=== PATIENT | female | born 1970 | race Caucasian/White ===

== ENCOUNTER 2016-10-02 11:35 | Emergency (ER) | payer OTHER ==
[~2016-10-02] VITALS: Ht 177.8 cm; Wt 99.0 kg
[~2016-10-02 11:35] MED LIST: AMBIEN10 MG PO; BUSPAR5 MG PO; IBUPROFEN800 MG PO; MOTRIN800 MG PO; NAPROSYN500 MG PO; NORCO 5/3251 TABLET PO; OMEPRAZOLE40 M1 PO; RANITIDINE HCL150 MG PO; SOMA250 MG PO; SOMA350 MG PO; TOPIRAMATE50 MG PO; TRAMADOL HCL50 MG PO; ULTRAM50 MG PO; VALIUM5 MG PO; ZOFRAN4 MG PO; ZOLPIDEM TARTRAT5 MG PO
[2016-10-02 12:56] LABS: ADD MIUA? NO; BILIRUBIN NEGATIVE; BLOOD NEGATIVE; GLUCOSE (STRIP) NEGATIVE; KETONES NEGATIVE; LEUKOCYTES NEGATIVE; NITRITE NEGATIVE; PROTEIN (STRIP) NEGATIVE; SPECIFIC GRAVITY 1.015 (1.000-1.030); UROBILINOGEN 0.2 MG/DL (0.2-1.0)
[2016-10-02 12:57] LABS: COLOR LT YELLOW ((YELLOW))
[2016-10-02] MEDS ORDERED: FLEXERIL10 MG PO (13:16)
[2016-10-02 13:28] VITALS: BP 131/104
== END 2016-10-02 13:31 | disposition home or self-care (01) ==
LOC: RME 11:35 → EME 11:35 → RME 13:31
PROVIDERS: Nurse Practitioner Family
DX: M54.41 Lumbago with sciatica, right side (principal); M54.16 Radiculopathy, lumbar region; K21.9 Gastro-esophageal reflux disease without esophagitis
CPT/HCPCS: 81003; 99281; 99284; J1100

== ENCOUNTER 2016-11-06 23:15 | Emergency (ER) | payer OTHER ==
[~2016-11-06] VITALS: Ht 177.8 cm; Wt 101.5 kg
[~2016-11-06 23:15] MED LIST changes: +FLEXERIL10 MG PO
[2016-11-06 23:28] VITALS: BP 132/85
== END 2016-11-07 01:00 | disposition left against medical advice (07) ==
LOC: EME 23:15
DX: J39.2 Other diseases of pharynx (principal); Z53.21 Procedure and treatment not carried out due to patient leaving prior to being seen by health care provider

== ENCOUNTER 2017-02-20 09:16 | Day surgery (SDC) | payer OTHER ==
[~2017-02-20] VITALS: Ht 175.3 cm; Wt 95.3 kg
[~2017-02-20 09:16] MED LIST changes: +KLONOPIN0.5 M1 PO; +SINEQUAN50 MG PO
== END 2017-02-20 10:35 | disposition home or self-care (01) ==
LOC: PAIN 09:16 → SDC 10:00 → PAIN 10:35
DX: M54.16 Radiculopathy, lumbar region (principal); M54.5 Low back pain; G89.29 Other chronic pain; M53.3 Sacrococcygeal disorders, not elsewhere classified; M47.814 Spondylosis without myelopathy or radiculopathy, thoracic region; F41.8 Other specified anxiety disorders; M54.9 Dorsalgia, unspecified; K21.9 Gastro-esophageal reflux disease without esophagitis; Z79.891 Long term (current) use of opiate analgesic; Z87.891 Personal history of nicotine dependence
CPT/HCPCS: J1100; J2250; J3010

== ENCOUNTER 2017-03-20 09:14 | Day surgery (SDC) | payer OTHER ==
[~2017-03-20] VITALS: Ht 175.3 cm; Wt 95.3 kg
[~2017-03-20 09:14] MED LIST changes: +DICLOFENAC SOD100 MG PO; +NEURONTIN300 MG PO
== END 2017-03-20 12:32 | disposition home or self-care (01) ==
LOC: PAIN 09:14 → SDC 10:00 → PAIN 10:00
DX: M54.16 Radiculopathy, lumbar region (principal); M54.5 Low back pain; G89.29 Other chronic pain; M53.3 Sacrococcygeal disorders, not elsewhere classified; K21.9 Gastro-esophageal reflux disease without esophagitis; F41.8 Other specified anxiety disorders; Z79.891 Long term (current) use of opiate analgesic; Z87.891 Personal history of nicotine dependence
CPT/HCPCS: J1100; J1885; J2250; J3010

== ENCOUNTER → 2017-10-08 | Outpatient (CLI) | payer OTHER | END | disposition home or self-care (01) | LOC: CDC 13:30 | DX: Z01.810 Encounter for preprocedural cardiovascular examination (principal); G56.01 Carpal tunnel syndrome, right upper limb | CPT/HCPCS: 93000 ==